=== PATIENT | male | born 1955 | race Caucasian/White ===

== ENCOUNTER → 2021-03-28 10:38 | Outpatient (CLI) | payer OTHER, SELFPAY ==
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
== END ==
PROVIDERS: PCP Emergency Medicine; Visit Provider Emergency Medicine
DX: M47.816 Spondylosis without myelopathy or radiculopathy, lumbar region (principal)
CPT/HCPCS: 72100

== ENCOUNTER 2021-09-12 11:38 | Outpatient (CLI) | payer MEDICARE, MEDICAID, SELFPAY ==
--- NOTE | ~2021-09-12 | XR_ITS ---
EXAMINATION: XR knee LT min 4V DATE: 09/12/2021 12:11 INDICATION: Left knee pain TECHNIQUE: Four views of the left knee were obtained. COMPARISON: None. FINDINGS: Alignment is normal. No fracture or osteochondral lesion. There is mild tricompartmental os teoarthritis characterized by tiny marginal osteophytes. No joint effusion/synovitis. There is mild irregularity of the anterior tibial spine which could reflect prior injury. IMPRESSION: 1. No acute osseous abnormality. Reviewed, dictated and finalized at location F. /R SERVICE TECHNICIAN
--- NOTE | ~2021-09-12 | XR_ITS ---
EXAMINATION: XR knee RT min 4V DATE: 09/12/2021 12:12 INDICATION: Right knee pain TECHNIQUE: Four views of the right knee were obtained. COMPARISON: None. FINDINGS: Alignment is normal. No fracture or osteochondral lesion. There is mild tricompartmental os teoarthritis characterized by tiny marginal osteophytes. No joint effusion/synovitis. There is mild irregularity and heterotopic ossification at the anterior tibial spine, consistent with prior injury. IMPRESSION: 1. No acute osseous abnormality. Reviewed, dictated and finalized at location F. INA REFINERY OPERATOR
== END 2021-09-12 11:39 | disposition home or self-care (01) ==
LOC: ANHIMG 11:46
PROVIDERS: PCP Emergency Medicine; Visit Provider Emergency Medicine
DX: M25.561 Pain in right knee (principal); M25.562 Pain in left knee
CPT/HCPCS: 73564

== ENCOUNTER 2022-04-23 11:43 | Emergency (ER) | payer MEDICARE, MEDICAID, SELFPAY ==
[2022-04-23 11:44] VITALS: BP 119/80; PULSE 87; RESP 18; TEMP 36.2; O2SAT 100
--- NOTE | 2022-04-23 11:57 | ED.NAVMDI ---
HPI - Nausea/Vomiting/Diarrhea General Chief complaint: Nausea/Vomiting/Diarrhea Stated complaint: N/V/D x 4 days Time Seen by Provider: 04/23/22 11:46 History of Present Illness HPI Narrative: 66-year-old male history of diabetes presents to the emergency room for evaluation of diarrhea. Patient states that he has had multiple episodes of nonbloody diarrhea since . Patient states that he is been experiencing just some generalized weakness, body aches and a headache. Patient states that he took hral-[id number] Imodium twice yesterday and that did not relieve his symptoms. Patient was seen at his primary care physician's office this morning, and was told to come to the emergency room for further evaluation. Patient endorses 1 episode of nausea since . Denies any abdominal pain. Related Data Allergies Allergy/AdvReac Type Severity Reaction Status Date / Time codeine Allergy Unknown Jittery Verified 04/23/22 11:55 hydrocodone Allergy Unknown Jittery Verified 04/23/22 11:55 Review of Systems Review of Systems: CONSTITUTIONAL: Denies fever, chills, or sweats. EYES: Denies visual changes, redness, or discharge. ENT: Denies rhinorrhea, congestion, sore throat, or otalgia. CARDIOVASCULAR: Denies chest pain, palpitations, or edema. RESPIRATORY: Denies cough or dyspnea. GASTROINTESTINAL: Reports diarrhea GENITOURINARY: Denies dysuria or hematuria. SKIN: Denies rash or itching. MUSCULOSKELETAL: Denies back pain, joint pain, or myalgia. NEUROLOGIC: Denies headache, numbness, dizziness, or weakness. PSYCHIATRIC: Denies anxiety or depression. Exam Narrative: GENERAL: Well-appearing, well-nourished, no physical limitations, and in no acute distress. HEAD: Normocephalic, atraumatic. EYES: Conjunctivae normal, PERRLA and EOMI. CHEST: Clear to auscultation. No respiratory distress. No wheezes rales or rhonchi. No tenderness. HEART: Regular rate and rhythm. No murmur heard. Normal peripheral pulses. ABDOMEN: Soft, nontender, obese, normal active bowel sounds. EXTREMITIES: Normal range of motion. No edema. No clubbing or cyanosis SKIN: Warm, dry, no rash. No noted wounds NEURO: No focal deficits. Alert and oriented x3. MAEW. CN's II-XI intact bilaterally, normal gait PSYCH: Cooperative. Normal mood and affect. Course Vital Signs Vital signs: Vital Signs Temperature 36.2 C L 04/23/22 11:44 Pulse Rate 87 04/23/22 11:44 Respiratory Rate 18 04/23/22 11:44 Blood Pressure 119/80 04/23/22 11:44 Pulse Oximetry 100 04/23/22 11:44 Oxygen Delivery Room Air 04/23/22 11:44 Temperature 36.2 C L 04/23/22 11:44 Pulse Rate 86 04/23/22 12:01 Respiratory Rate 18 04/23/22 12:01 Blood Pressure 134/80 04/23/22 12:01 Pulse Oximetry 100 04/23/22 12:01 Oxygen Delivery Room Air 04/23/22 11:44 MDM - Nausea/Vomiting/Diarrhea Lab Data Result diagrams: 04/23/22 12:02 04/23/22 12:02 Labs: Lab Results 04/23/22 04/23/22 04/23/22 Range/Units 12:02 12:02 13:46 WBC 8.8 (4.5-10.0) K/mm3 RBC 4.52 L (4.6-6.20) M/mm3 Hgb 13.8 L (14.0-18.0) g/dL Hct 42.4 (42.0-52.0) % MCV 93.8 (80-100) fl MCH 30.5 (26-34) pg MCHC 32.5 (32-36) g/dl RDW 13.0 (11.5-14.5) % Plt Count 234 (150-375) k/mm3 MPV 9.2 (7.4-10.4) fl Immature Gran % (Auto) 0.6 H (0-0.5) % Neut % (Auto) 76.3 H (45.5-73.1) % Lymph % (Auto) 10.3 L (18.3-44.2) % Pratt % (Auto) 9.2 H (2.6-8.5) % Eos % (Auto) 3.0 (0-4.4) % Baso % (Auto) 0.6 (0.2-1.2) % Lymph # (Auto) 0.91 (0.9-3.2) K/mm3 Pratt # (Auto) 0.8 H (0.1-0.6) K/mm3 Eos # (Auto) 0.3 (0-0.3) K/mm3 Baso # (Auto) 0.1 (0.0-0.1) K/mm3 Abs Immat Gran (auto) 0.05 H (0.00-0.031) K/mm3 Absolute Neuts (auto) 6.7 (1.3-6.7) K/mm3 Absolute Nucleated RBC 0.0 (0.0-0.012) K/mm3 Nucleated RBC % 0.0 (0.0-0.2) % Sodium 138 (137-145) mmol/L Potassium 3.9 (
[2022-04-23 12:01] VITALS: BP 134/80; PULSE 86; RESP 18; O2SAT 100
[2022-04-23] MEDS: LACTATED RINGERS 1,000 ML 999 ML IV CONT (12:03)
[2022-04-23 12:10] LABS: Basophils Absolute Auto 0.1 K/mm3 (0.0-0.1); Basophils Percent Auto 0.6 % (0.2-1.2); Eosinophils Absolute Auto 0.3 K/mm3 (0-0.3); Hematocrit 42.4 % (42.0-52.0); Hemoglobin 13.8 g/dL (14.0-18.0); Immature Granulocyte Absolute 0.05 K/mm3 (0.00-0.031); Immature Granulocyte Percent A 0.6 % (0-0.5); Lymphocytes Absolute Auto 0.91 K/mm3 (0.9-3.2); Lymphocytes Percent Auto 10.3 % (18.3-44.2); Mean Corpuscular HGB Conc 32.5 g/dl (32-36); Mean Corpuscular Hemoglobin 30.5 pg (26-34); Mean Corpuscular Volume 93.8 fl (80-100); Mean Platelet Volume 9.2 fl (7.4-10.4); Monocytes Absolute Auto 0.8 K/mm3 (0.1-0.6); Monocytes Percent Auto 9.2 % (2.6-8.5); Neutrophils Absolute Auto 6.7 K/mm3 (1.3-6.7); Neutrophils Percent Auto 76.3 % (45.5-73.1); Platelet Count Result 234 k/mm3 (150-375); Red Blood Count 4.52 M/mm3 (4.6-6.20); White Blood Count 8.8 K/mm3 (4.5-10.0)
[2022-04-23 12:22] LABS: Alanine Aminotransferase 25 U/L (6-50); Albumin Level 4.6 g/dL (3.5-5.1); Alkaline Phosphatase 62 U/L (38-126); Anion Gap 13 mmol/L (8-16); Aspartate Amino Transferase 22 U/L (17-59); Bilirubin,Total 0.7 mg/dL (0.2-1.3); Blood Urea Nitrogen 25 mg/dL (9-20); Calcium 9.1 mg/dL (8.4-10.2); Carbon Dioxide 21 mmol/L (22-30); Chloride 104 mmol/L (98-107); Estimated CRCL calculation 88 ml/min; Estimated Glomerular Filt Rate > 60; Glucose 174 mg/dL (65-110); Lipase 126 U/L (23-300); Potassium 3.9 mmol/L (3.4-5.0); Sodium 138 mmol/L (137-145)
[2022-04-23] MEDS: SODIUM CHLORIDE 0.9% IV 1,000 ML 999 ML IV CONT (13:01)
[2022-04-23 13:06] VITALS: O2SAT 99
[2022-04-23 13:07] VITALS: BP 128/81; O2SAT 98
[2022-04-23 13:15] VITALS: O2SAT 100
[2022-04-23 13:16] VITALS: BP 139/76; O2SAT 100
--- NOTE | 2022-04-23 13:51 | PC.NURSE ---
Patient ambulatory to the bathroom to provide urine sample. States I'm feeling much better after the IV .
[2022-04-23 14:00] LABS: Appearance Urine Clear (Clear); Bilirubin Urine Negative (Negative); Blood Urine Negative (Negative); Color Urine Yellow (Yellow); Glucose Urine UA Negative (Negative); Ketones Urine Negative (Negative); Leukocyte Esterase Ur Negative LEU/UL (Negative); Nitrate Urine Negative (Negative); Protein Urine Negative (Negative); Urobilinogen Urine 0.2 mg/dL (<2.0); pH Urine 5.5 (5.0-9.0)
[2022-04-23 14:11] LABS: Mucus Urine Heavy /lpf; RBC Urine 0-2 /hpf (0-2); Squamous Epithelial Cell Urine Rare /hpf (Few); WBC Urine 0-3 /hpf
[2022-04-23 14:22] LABS: Add Urine Microscopic? YES
== END 2022-04-23 14:28 | disposition home or self-care (01) ==
PROVIDERS: Emergency Medicine; Emergency Provider Nurse Practitioner Family; PCP Emergency Medicine
DX: R19.7 Diarrhea, unspecified (principal); E11.9 Type 2 diabetes mellitus without complications
CPT/HCPCS: 36415; 80053; 81001; 83690; 85025; 96360; 96361; 99283; J7030; J7120

== ENCOUNTER 2023-03-28 11:33 | Outpatient (CLI) | payer MEDICARE, MEDICAID, SELFPAY ==
--- NOTE | ~2023-03-28 | XR_ITS ---
Right foot Technique: AP, oblique, and lateral views were obtained. Clinical History: Pain Findings: No acute fracture or dislocation is seen. There is hallux valgus with mild degenerative halima nge at the first MTP joint. Soft tissues are unremarkable. Impression: Hallux valgus with mild degenerative change of the first MTP joint. Reviewed, dictated and finalized at location . Impression: Hallux valgus with mild degenerative change of the first MTP joint.
== END 2023-03-28 11:34 | disposition home or self-care (01) ==
PROVIDERS: PCP Emergency Medicine
DX: M79.671 Pain in right foot (principal); M79.672 Pain in left foot; E11.610 Type 2 diabetes mellitus with diabetic neuropathic arthropathy; R26.89 Other abnormalities of gait and mobility; M20.11 Hallux valgus (acquired), right foot
CPT/HCPCS: 73630

== ENCOUNTER 2024-10-03 09:25 | Outpatient (CLI) | payer MEDICARE, MEDICAID, SELFPAY ==
--- OUTSIDE RECORDS SUMMARY | 2024-10-03 09:34 | XMS_ITS | Encounter Summary ---
Author Organization [facility] Address [address] [place] [address] Care Team Providers Care Mobile Architect Name Role Phone Joe Sanchez MD Primary Care Provider [phone] Encounter Details Date Type Department Care Team (Late st Contact Info) Description 02/02/2022 Telephone [facility], Diabetes and Metabolism [address] [facility] [place] [phone] Floyd Lind MD [address] [place] [address] Social History Tobacco Use Types Packs/Day Years Used Date Smoking Tobacco: Never Smokeless Tobacco: Never Alcohol Use Standard Drinks/Week Comments Yes 0 (1 standard drink = 0.6 oz pur e alcohol) ocas Sex and Gender Information Value Date Recorded Sex Assigned at Not on file Gender Identity Not on file Sexual Orientation Not on file documented as of this encounter Miscellaneous Notes * Telephone Encounter - Faith Bhagat - 02/02/2022 2:17 PM CDT Current Provider name: Dr. Floyd Lind Reason for call: Mr. Camille Sunshine brought paper work for the doctor to fill out at his appt 01/03/2022 then it was to be faxed over to [facility] in [place], [place] . Fax # is on paper work. He would like it completed so he can get his shoes. He stressed it has now been a month. Thanks. Patient Call Back number: [phone] documented in this encounter Plan of Treatment Upcoming Encounters Date Type Department Care Team (Late st Contact Info) Description 01/11/2025 12:40 PM CDT Office Visit [facility] - Sleep Services [address] [place] [address] Ivett Rodriguez DO [address] [facility] [address] DIV [place] [address] 03/31/2025 1:00 PM CDT Office Visit [facility] - Endocrinology [address] [facility] [place] [phone] Remi Moran MD [address] [facility] DIV [place] [phone] documented as of this encounter Visit Diagnoses Not on filedocumented in this encounter Care Teams Mobile Architect Relationship Specialty Start Date End Date Joe Sanchez MD [address] [facility] [address] [place] [address] PCP - General 02/02/22 documented as of this encounter
--- OUTSIDE RECORDS SUMMARY | 2024-10-03 09:34 | XMS_ITS | Referral Summary ---
Author Organization [facility] Address [address] [facility] [facility] [place] [address] Care Team Providers Care Electric Meter Repairer Apprentice Name Role Phone Joe Sanchez MD Primary Care Provider [phone] Source Comments [facility],non-owned Affiliates and Associated Physician Practices is amultiple site organization consisting of ambulatory clinics and hospital sitesin [place], [place] and [place]. This disclosure is being madepursuant to the Care Everywhere program and may not contain all information available regarding this patient. Last updated 18.[facility] Encounters Date Type Department Care Team Description 09/30/2024 Refill [facility] Endocrinology [address] [place] [phone] Rebekah Harrell MD MEDICATION REFILL 09/28/2024 Refill [facility] Endocrinology [address] [place] [phone] Rebekah Harrell MD Refill Request 09/25/2024 Travel 09/23/2024 Travel 09/23/2024 1:00 PM OPERATOR SUPPLY Office Visit [facility] - Endocrinology [address] [place] [phone] Rebekah Harrell MD Type 2 diabetes mellitus without complication, with long-term current use of insulin (HCC) (Primary Dx); GRISEL (obstructive sleep apnea) 09/08/2024 Refill [facility] Internal Med [address] [place] [phone] Samanta Francisco MD MEDICATION REFILL 07/07/2024 Refill [facility] - Endocrinology [address] [facility] [place] [phone] Aron Rogers MD Refill Request from Last 3 Months Allergies Active Allergy Reactions Criticality Noted Date Comments Codeine Itching Low 10/10/2016 Medications * Be aware that medications may not be up to date on this document. Alwaysverify current medications with the patient. Medication Sig Dispensed Refills Start Date End Date Status aspirin EC (ECOTRIN) 81 MG tablet Take 1 (one) tablet by mouth once daily Active metFORMIN (GLUCOPHAGE) 500 MG tablet Take 1 (one) tablet by mouth 2 times daily 2 Active metoprolol succinate XL 24hr (TOPROL XL) 25 MG tablet Take 1 (one) tablet by mouth once daily Active atorvastatin (LIPITOR) 80 MG tablet Take 1 (one) tablet by mouth once daily Active fenofibrate (TRICOR) 145 MG tablet Take 1 (one) tablet by mouth once daily Active Glucosamine-Cho ndroit-Vit C-Mn (GLUCOSAMINE 1500 COMPLEX PO) Take 1,500 mg by mouth once daily Active VITAMIN D PO Take 1 tablet by mouth every 7 days Active vitamin D, ergocalciferol, (Drisdol) 1.25 MG (04592 UT) capsuleIndicati ons:Vitamin D deficiency Take 1 (one) capsule by mouth every 7 days 8 capsule 3 Active omeprazole EC (PriLOSEC OTC) 20 MG tabletIndicatio ns:Gastroesopha geal reflux disease, unspecified whether esophagitis present Take 1 (one) tablet by mouth once daily 14 tablet 3 Active losartan (Cozaar) 50 MG tablet Take 1 (one) tablet by mouth once daily 100 tablet 4 4 Active sildenafil (Viagra) 100 MG tablet Take 1 (one) tablet by mouth once daily as needed 4 Active omeprazole (PriLOSEC) 20 MG capsule Take 1 (one) capsule by mouth every morning 4 Active Lantus SoloStar pen INJECT 45 UNITS SUBCUTANEOUSLY AT BEDTIME 12 mL 11 4 Active Sure Comfort Pen [place] 32G X 4 MM MISC as directed 4 Active ezetimibe (Zetia) 10 MG tablet Take 1 (one) tablet by mouth once daily 4 025 Active Farxiga 5 MG tabletIndicatio ns:Type 2 diabetes mellitus without complication, with long-term current use of insulin (HCC) TAKE ONE TABLET BY MOUTH EVERY MORNING 30 tablet 5 4 Active Ozempic, 2 MG/DOSE, 8 MG/3ML penIndications: Other sleep apnea,Type 2 diabetes mellitus without complication, with long-term current use of insulin (HCC) Inject 2 (two) mg subcutaneously every 7 days 9 mL 3 5 Active tirzepatide (Mounjaro) 10 MG/0.5ML injectionIndica tions:Type 2 diabetes mellitus without complication, with long-term current use of insulin (HCC) Inject 10 (ten) mg subcutaneously every 7 days 2 mL 2 5 Active Blood Glucose Monitoring Suppl (OneTouch Verio Flex System) w/Device KITIndications: Type 2 diabetes mellitus without complication, with long-term current use of insulin (HCC) USE DIRECTED 1 kit 1 5 Active ONETOUCH DELICA PLUS 30G FINE LANCETSIndicati ons:Type 2 diabetes mellitus without complication, with long-term current use of insulin (HCC) Use 1 Each 3 times daily before meals 100 Each 2 5 Active blood glucose test stripIndication s:Type 2 diabetes mellitus without complication, with long-term current use of insulin (HCC) Use 1 (one) strip as directed 100 strip 2 5 Active Ozempic, 2 MG/DOSE, 8 MG/3ML pen 2 (two) mg every 7 days 4 025 Discontinued(Re order) Blood Glucose Monitoring Suppl (Blood Glucose Monitor System) w/Device KITIndications: Type 2 diabetes mellitus without complication, with long-term current use of insulin (HCC) Use 1 Each once for 1 dose 1 Each 5 025 Discontinued Blood Pressure Monitoring (Blood Pressure Cuff) MISCIndications :Type 2 diabetes mellitus without complication, with long-term current use of insulin (HCC) Use 1 Each 1 (one) time for 1 dose 1 Each 025 Active Problems Problem Noted Date Diagnosed Date Back pain 10/24/2021 Sleep talking 10/24/2021 Sleep related bruxism 10/24/2021 Sleep related gastroesophageal reflux disease Nocturia 10/24/2021 Hypertension, secondary 10/24/2021 Hypersomnia due to medical condition 10/24/2021 RBBB 10/19/2021 DM type 2 (diabetes mellitus, type 2) 09/27/2021 Other sleep apnea 09/27/2021 Class 2 obesity in adult 09/27/2021 Other hyperlipidemia 09/27/2021 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 09/27/2021 Primary hypertension 09/27/2021 Immunizations Name Administration Dates Next Due INFLUENZA VACCINE 08/31/2021 PNEUMOCOCCAL PPSV23 08/31/2021 Social History Tobacco Use Types Packs/Day Years Used Date Smoking Tobacco: Never Smokeless Tobacco: Never Tobacco Cessation:Counseling Given: Not Answered Alcohol Use Standard Drinks/Week Comments Yes 0 (1 standard drink = 0.6 oz pur e alcohol) ocas PHQ-2 Answer Date Recorded Patient Health Questionnaire-2 Score 0 05/08/2023 Sex and Gender Information Value Date Recorded Sex Assigned at Not on file Gender Identity Not on file Sexual Orientation Not on file Last Filed Vital Signs Vital Sign Reading Time Taken Comments Blood Pressure 143/84 09/23/2024 1:12 PM OPERATOR SUPPLY Pulse 92 09/23/2024 1:12 PM OPERATOR SUPPLY Temperature 36.7 C (98 F) 01/23/2023 2:34 PM CDT Respiratory Rate 18 01/23/2023 2:34 PM CDT Oxygen Saturation 93% 09/23/2024 1:12 PM OPERATOR SUPPLY Inhaled Oxygen Concentration - - Weight 118 kg (260 lb 3.2 oz) 09/23/2024 1:12 PM OPERATOR SUPPLY Height 190.5 cm (6' 3 ) 09/23/2024 1:12 PM OPERATOR SUPPLY Body Mass Index 32.52 09/23/2024 1:12 PM OPERATOR SUPPLY Plan of Treatment Upcoming Encounters Date Type Department Care Team (Late st Contact Info) Description 01/11/2025 12:40 PM CDT Office Visit [facility] - Sleep Services [address] [place] [phone] Ivett Rodriguez DO [address] [facility] [address] [place] [address] 03/31/2025 1:00 PM CDT Office Visit [facility] - Endocrinology [address] [place] [address], [place] [address] Remi Moran MD [address] [facility] [place] [phone] Procedures Procedure Name Priority Date/Time Associated Diagnosis Comments HEMOGLOBIN A1C - POINT OF CARE (AMB) [facility] Routine 09/23/2024 1:32 PM OPERATOR SUPPLY Type 2 diabetes mellitus without complication, with long-term current use of insulin (HCC) MICROALB/CREAT RATIO URINE RANDOM PANEL Routine 04/15/2024 11:21 AM CDT COMPREHENSIVE METABOLIC PANEL Routine 01/29/2023 7:38 AM CDT Type 2 diabetes mellitus without complication, with long-term current use of insulin (HCC) from Last 3 Months or Most Recently Relevant to Health Maintenance Results * HEMOGLOBIN A1C - POINT OF CARE (AMB) [facility] (09/23/2024 1:32 PM OPERATOR SUPPLY) Hemoglobin A1c POCT 6.7 % [address] BLOOD SPECIMEN / Unknown 09/23/2024 1:32 PM OPERATOR SUPPLY Samanta Francisco MD LAB - POINT OF CARE ORDERABLES [address] [address], [facility] [phone] * MICROALB/CREAT RATIO URINE RANDOM PANEL (04/15/2024 11:21 AM CDT) Creatinine Urine 184.7 Not Estab. mg/dL [facility] INSURANCE BILL Microalbumin Urine 5.2 Not Estab. ug/mL [facility] INSURANCE BILL Microalbumin/Crea tinine Ratio 3 0 - 29 mg/g creat [facility] INSURANCE BILL Comment: Normal: 0 - 29 Moderately increased: 30 - 300 Severely increased: >300 04/15/2024 11:2 1 AM CDT 04/15/2024 Narrative [facility] INSURANCE BILL - 04/16/2024 7:12 AM CDT Performed at: 01 - [facility] [address] [place], [place] [id number] Senior Analyst Developer: Paulie Luong PhD, Phone: [phone] Specimen Comment: A courtesy copy of this report has been sent to [phone], the patient Aron Rogers MD LAB - URINE CHEMISTR Y ORDERABLES [facility] INSURANCE BILL [address] [place] [address] * (ABNORMAL) COMPREHENSIVE METABOLIC PANEL (01/29/2023 7:38 AM CDT) Glucose 109(H) 70 - 99 mg/dL [facility] INSURANCE BILL BUN 27 8 - 27 mg/dL [facility] INSURANCE BILL Creatinine 1.12 0.76 - 1.27 mg/dL [facility] INSURANCE BILL eGFR by CKD-EPI 72 >59 mL/min/1.7 3 [facility] INSURANCE BILL BUN/Creatinine Ratio 24 10 - 24 [facility] INSURANCE BILL Sodium 140 134 - 144 mmol/L [facility] INSURANCE BILL Potassium 4.5 3.5 - 5.2 mmol/L [facility] INSURANCE BILL Chloride 102 96 - 106 mmol/L [facility] INSURANCE BILL CO2 22 20 - 29 mmol/L [facility] INSURANCE BILL Calcium 9.0 8.6 - 10.2 mg/dL [facility] INSURANCE BILL Protein Total 6.6 6.0 - 8.5 g/dL [facility] INSURANCE BILL Albumin 4.5 3.9 - 4.9 g/dL [facility] INSURANCE BILL Comment:Please note refere nce interval change Globulin Total 2.1 1.5 - 4.5 g/dL [facility] INSURANCE BILL Albumin/Globulin Ratio 2.1 1.2 - 2.2 [facility] INSURANCE BILL Bilirubin Total 0.5 0.0 - 1.2 mg/dL [facility] INSURANCE BILL Alkaline Phosphatase 61 44 - 121 IU/L [facility] INSURANCE BILL AST 18 0 - 40 IU/L [facility] INSURANCE BILL ALT 18 0 - 44 IU/L [facility] INSURANCE BILL Comment:FASTING Blood BLOOD SPECIMEN / Unknown 01/29/2023 7:38 AM CDT 01/29/2023 Narrative Resulting Agency Comment Lab Testing performed at: [facility] [address] [facility] [id number] Shar Park MD LAB - CHEMISTRY MEG GARCIAS [facility] INSURANCE BILL [address] [place] [address] from Last 3 Months or Most Recently Relevant to Health Maintenance Care Teams Electric Meter Repairer Apprentice Relationship Specialty Start Date End Date Joe Sanchez MD [address] [facility] [address] [place] [address] PCP - General 02/02/22
--- OUTSIDE RECORDS SUMMARY | 2024-10-03 09:34 | XMS_ITS | Clinical Summary ---
Author Organization [facility] Address [address] [facility] [place] [address] Care Team Providers Care Product Management Intern Name Role Phone Joe Sanchez MD Primary Care Provider [phone] Source Comments [facility],non-owned Affiliates and Associated Physician Practices is amultiple site organization consisting of ambulatory clinics and hospital sitesin [place], [place], [place] and [place]. This disclosure is being madepursuant to the Care Everywhere program and may not contain all information available regarding this patient. Last updated 18.[facility] Allergies Active Allergy Reactions Criticality Noted Date [...] Active vitamin D, ergocalciferol, (Drisdol) 1.25 MG (09369 UT) capsuleIndicati ons:Vitamin D deficiency Take 1 [...] mL 11 4 Active Sure Comfort Pen [place] 32G X 4 MM MISC as directed [...] 2 5 Active Blood Glucose Monitoring Suppl (Holidu Verio Flex System) w/Device KITIndications: Type 2 [...] (one) time for 1 dose 1 Each 5 025 Active Problems Problem Noted Date Diagnosed Date Back pain 10/24/2021 Sleep talking 10/24/2021 Sleep related bruxism 10/24/2021 Sleep related gastroesophageal reflux disease Nocturia 10/24/2021 Hypertension, secondary 10/24/2021 Hypersomnia due to medical condition 10/24/2021 RBBB 10/19/2021 DM type 2 (diabetes mellitus, type 2) 09/27/2021 Other sleep apnea 09/27/2021 Class 2 obesity in adult 09/27/2021 Other hyperlipidemia 09/27/2021 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 09/27/2021 Primary hypertension 09/27/2021 Encounters Date Type Department Care Team Description 09/30/2024 Refill [facility] - Endocrinology [address] [place] [address], [place] [address] Rebekah Harrell MD MEDICATION REFILL 09/28/2024 Refill [facility] - Endocrinology [address] [place] [address], [place] [address] Rebekah Harrell MD Refill Request 09/25/2024 Travel 09/23/2024 1:00 PM PEDIATRIC NURSE Office Visit [facility] - Endocrinology [address] [place] [address] [place] [address] Rebekah Harrell MD Type 2 diabetes mellitus without complication, with long-term current use of insulin (HCC) (Primary Dx); GRISEL (obstructive sleep apnea) 09/23/2024 Travel 09/08/2024 Refill [facility] - Internal Med [address] [place] [phone] Samanta Francisco MD MEDICATION REFILL 07/07/2024 Refill [facility] - Endocrinology [address] [place] [address], [place] [address] Aron Rogers MD Refill Request from Last 3 Months Immunizations Name Administration Dates Next Due INFLUENZA VACCINE 08/31/2021 PNEUMOCOCCAL PPSV23 08/31/2021 Family History Medical History Relation Name Comments CAD (Coronary Artery Disease) Father CAD (Coronary Artery Disease) Mother Relation Name Status Comments Father Mother Social History Tobacco Use Types Packs/Day Years [...] Comments Blood Pressure 143/84 09/23/2024 1:12 PM PEDIATRIC NURSE Pulse 92 09/23/2024 1:12 PM PEDIATRIC NURSE Temperature 36.7 C (98 F) 01/23/2023 2:34 PM CDT Respiratory Rate 18 01/23/2023 2:34 PM CDT Oxygen Saturation 93% 09/23/2024 1:12 PM PEDIATRIC NURSE Inhaled Oxygen Concentration - - Weight 118 kg (260 lb 3.2 oz) 09/23/2024 1:12 PM PEDIATRIC NURSE Height 190.5 cm (6' 3 ) 09/23/2024 1:12 PM PEDIATRIC NURSE Body Mass Index 32.52 09/23/2024 1:12 PM PEDIATRIC NURSE Plan of Treatment Upcoming Encounters Date Type Department Care Team (Late st Contact Info) Description 01/11/2025 12:40 PM CDT Office Visit [facility] - [facility] Services [address] [place] [phone] Ivett Rodriguez DO [address] [facility] [address] [facility] [place] [address] 03/31/2025 1:00 PM CDT Office Visit [facility] - Endocrinology [address] [facility] [place] [address] Remi Moran MD [address] [facility] [place] [place] [phone] Health Maintenance Due Date Last Done Comments COLOGUARD (AGES 45-75) - COLON CA SCREENING 1955 COLON MONITORING 1955 COLONOSCOPY - COLON CA SCREENING 1955 CT COLONOGRAPHY - COLON CA SCREENING 1955 Colorectal Cancer Screening 1955 FIT - COLON CA SCREENING 1955 FLEX SIG - COLON CA SCREENING 1955 HEPATITIS C SCREENING 12/25/1973 DTAP/TDAP/TD VACCINES (1 - Tdap) 12/29/1974 ZOSTER VACCINE (1 of 2) 12/29/2005 Respiratory Syncytial Virus (RSV) Vaccine Pt: or over 60 yrs (1 - Risk 60-74 years 1-dose series) 2015 DIABETES RETINOPATHY SCREENING 09/27/2021 PNEUMOCOCCAL VACCINE 50+ (2 of 2 - PCV) 08/31/2022 08/31/2021 DIABETES-FOOT EXAM WITH MONOFILAMENT 10/25/2023 10/24/2022 DIABETES-SERUM CREATININE 01/30/2024 01/29/2023 COVID-19 VACCINE (1 - season) 2024 INFLUENZA VACCINE (#1) 2024 08/31/2021 DEPRESSION SCREENING 07/22/2024 10/24/2022 DIABETES - URINE PROTEIN SCREENING 07/22/2024 04/15/2024 MEDICARE AWV CALENDAR YEAR 2024 DIABETES-HGB A1C 03/26/2025 09/23/2024, , 01/23/2023, Additional history exists HEPATITIS B VACCINE Aged Out No longe r eligible based on patient's age to complete this topic HIB VACCINE Aged Out No longer eligi ble based on patient's age to complete this topic HPV VACCINE Aged Out No longer eligi ble based on patient's age to complete this topic MENINGOCOCCAL (Group B) VACCINE SHARED DECISION-MAKING Aged Out No longer eligible based on patient's age to complete this topic MENINGOCOCCAL GROUPS A/C/Y/W VACCINE Aged Out No longer eligible based on patient's age to complete this topic Procedures Procedure Name Priority Date/Time Associated Diagnosis Comments HEMOGLOBIN A1C - POINT OF CARE (AMB) [facility] Routine 09/23/2024 1:32 PM PEDIATRIC NURSE Type 2 diabetes mellitus without complication, with [...] OF CARE (AMB) [facility] (09/23/2024 1:32 PM PEDIATRIC NURSE) Hemoglobin A1c POCT 6.7 % [address] BLOOD SPECIMEN / Unknown 09/23/2024 1:32 PM PEDIATRIC NURSE Samanta Francisco MD LAB - POINT OF CARE ORDERABLES Performing Organization Address [facility]/State/ZIP Co de Phone Number [address], [place] [address], [facility] [phone] * MICROALB/CREAT RATIO URINE RANDOM PANEL (04/15/2024 [...] 7:12 AM CDT Performed at: 01 - [facility] [address] [place], [place] [id number] Clinical Rehabilitation Aide: Paulie Luong PhD, Phone: [phone] Specimen Comment: A courtesy copy of this report has been sent to [phone], the patient Aron Rogers MD LAB - URINE CHEMISTR Y ORDERABLES [facility] INSURANCE BILL [address] [place] [address] * (ABNORMAL) COMPREHENSIVE METABOLIC PANEL (01/29/2023 7:38 AM CDT) Pathologist [facility] Glucose 109(H) 70 - 99 mg/dL [facility] [...] Agency Comment Lab Testing performed at: [facility] [place] [address] [facility] [id number] Shar Park MD LAB - CHEMISTRY MEG GARCIAS [facility] INSURANCE BILL [address] [place] [address] from Last 3 Months or Most Recently Relevant to Health Maintenance Care Teams Product Management Intern Relationship Specialty Start Date End Date Joe Sanchez MD [address] [facility] [address] [place] [address] PCP - General 02/02/22
--- OUTSIDE RECORDS SUMMARY | 2024-10-03 09:34 | XMS_ITS | CONTINUITY OF CARE DOCUMENT ---
Author Name luissaran luissaran Address Unknown Organization [facility] Address [address] [place] [address] [address] [place] [address] Phone [phone] Care Team Providers Care Refractory Tile Helper Name Role Phone Hasmukh Hodges DO [place] Unavailable [phone] JAMES REDMOND MD Unavailable [phone] JAMES REDMOND MD Unavailable [phone] INSURANCE PROVIDERS Payer name Policy type / Coverage type [place] red green party ID [facility] [employer] insurance company [id number]
--- OUTSIDE RECORDS SUMMARY | 2024-10-03 09:34 | XMS_ITS | Clinical Summary ---
Author Organization [facility] Address [address] [place] [address] Care Team Providers Care Machine Sander Name Role Phone Nicolasa Whitfield MD Unavailable [phone] Joe Sanchez MD Primary Care Provider [phone] Allergies Active Allergy Reactions Criticality Noted Date Comments Codeine Itching 10/10/2016 Medications metFORMIN 850 MG tablet Take 1 tablet (850 mg total) by mouth 2 (two) times daily with meals. 10/10/2016 Active glimepiride 1 MG tablet Take 1 tablet (1 mg total) by mouth every morning before breakfast. 10/10/2016 Active aspirin 81 MG chewable tablet Chew 1 tablet (81 mg total) by mouth daily. 10/10/2016 Active Fish Oil 1000 MG Cap Take 1,000 mg by mouth daily. 05/22/2017 Active fenofibrate 145 MG tablet Take 1 tablet (145 mg total) by mouth nightly at bedtime. 90 tablet 3 08/29/2018 Active losartan 25 MG tablet Take 1 tablet (25 mg total) by mouth every evening. 90 tablet 3 08/29/2018 Active metoprolol succinate 25 MG 24 hr tablet Take 1 tablet (25 mg total) by mouth daily. 90 tablet 3 08/29/2018 Active sildenafil 50 MG tablet Take 1 tablet (50 mg total) by mouth daily as needed for Erectile Dysfunction. 18 tablet 1 08/29/2018 Active Omeprazole 20 MG Tab EC Take 1 tablet by mouth daily. 08/29/2018 Active ATORVASTATIN 80 MG tablet TAKE 1 TABLET BY MOUTH AT BEDTIME EVERY DAY 15 tablet 08/25/2019 Active Active Problems Problem Noted Date Diagnosed Date Hyperlipidemia, mixed 10/10/2016 Type 2 diabetes mellitus ([facility]/HCC HHS/HCC) 03/22 /2017 Obesity 10/10/2016 CAD (coronary artery disease) RBBB Resolved Problems Problem Noted Date Diagnosed Date Resolved Date Chest pain 10/10/2016 Dyslipidemia 10/10/2016 Family History Medical History Relation Comments Diabetes Father PR Mother Open Heart Mother Relation Status Comments Father Mother (Age 65) Social History Tobacco Use Types Packs/Day Years Used Date Smoking Tobacco: Former Cigarettes Q uit: 09/2015 Smokeless Tobacco: Never Comments:Quit smoking 2 week s ago Alcohol Use Standard Drinks/Week Comments Yes 0 (1 standard drink = 0.6 oz pur e alcohol) once a week beer Sex and Gender Information Value Date Recorded Sex Assigned at Not on file Legal Sex Male 2:46 PM CDT Gender Identity Not on file Sexual Orientation Not on file 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 Not on file Not on file No t on file Not on file Not on file Not on file Not on file Last Filed Vital Signs Vital Sign Reading Time Taken Comments Blood Pressure 120/80 08/29/2018 11:11 AM AGRICULTURAL EXTENSION EDUCATOR re taken by Pulse 85 08/29/2018 9:36 AM AGRICULTURAL EXTENSION EDUCATOR Temperature - - Respiratory Rate - - Oxygen Saturation 97% 08/29/2018 9:36 AM AGRICULTURAL EXTENSION EDUCATOR Inhaled Oxygen Concentration - - Weight 122.9 kg (271 lb) 08/29/2018 9:36 AM AGRICULTURAL EXTENSION EDUCATOR Height 190.5 cm (6' 3 ) 08/29/2018 9:36 AM AGRICULTURAL EXTENSION EDUCATOR Body Mass Index 33.87 08/29/2018 9:36 AM AGRICULTURAL EXTENSION EDUCATOR Plan of Treatment Health Maintenance Due Date Last Done Comments ASCVD Statin 1955 Colorectal Cancer Screening Colonoscopy (10 Years) 1955 Kidney Health Evaluation 1955 Pneumococcal Vaccine: 65+ Years (1 of 2 - PCV) 12/29/1961 Diabetes: Retinopathy Eye Exam 12/29/1973 Hepatitis C 12/29/1973 DTaP, Tdap and Td Vaccines (1 - Tdap) 12/29/1974 Zoster Vaccines (1 of 2) 12/29/2005 RSV Immunization or 60+ Years (1 - Risk 60-74 years 1-dose series) 2015 ASCVD LDL 11/27/2018 11/27/2017, 01/19, 09/17/2016 Lipid Panel 11/27/2018 11/27/2017, 01/19, 09/17/2016 Hemoglobin A1C 05/07/2019 11/05/2018, 05/0 03/2018, 02/01/2017, Additional history exists COVID-19 Vaccine ( season) 2024 Influenza Adult (#1) 2024 Meningococcal B Vaccine Aged Out No l onger eligible based on patient's age to complete this topic Meningococcal Vaccine Aged Out No maria isabel zulay eligible based on patient's age to complete this topic RSV Immunizations Under 20 Months Aged Out No longer eligible based on patient's age to complete this topic Procedures Procedure Name Priority Date/Time Associated Diagnosis Comments HEMOGLOBIN, GLYCOSYLATED Routine 11/05/2018 9:38 AM CDT 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 LIPID PANEL Routine 11/27/2017 from Last 3 Months or Most Recently Relevant to Health Maintenance Results * (ABNORMAL) HEMOGLOBIN, GLYCOSYLATED (11/05/2018 9:38 AM CDT) HGB A1C 9.5(H) 4.2 - 6.3 % 11/05/2018 11:11 AM CDT [facility] Comment: ADA GUIDELINES 2010 5.7 TO 6.4% INCREASED RISK OF DIABETES > OR = 6.5% CONSISTENT WITH DIABETES ESTIMATED AVG GLUCOSE 226 mg/dL 11/05/2018 11:11 AM CDT [facility] 11/05/2018 9:38 AM CDT us Oral Chakraborty MD LABORATORY Final Result [facility] [address] [place] [address], [place] [phone] * LIPID PANEL (11/27/2017) CHOLESTEROL 181 HDL 34 TRIGLYCERIDES 192 LDL (CALCULATED) 105 11/27/2017 us Doc [facility]ORAT[facility] Final Result from Last 3 Months or Most Recently Relevant to Health Maintenance Insurance Member Subscriber Plan / Payer (Ef fective 2017-Present) Name:Agueda Herrera Relation to Subscriber:Self Name:Agueda Herrera Payer ID:[id number] (NAIC) Type:Not on file Address: [address] Member Subscriber Plan / Payer (Ef fective 2018-Present) Name:AGUEDA HERRERA Relation to Subscriber:Self Name:Agueda Herrera Payer ID:[id number] (NAIC) Type:Not on file Address: [place] [id number] Care Teams Machine Sander Relationship Specialty Start Date End Date Joe Sanchez MD [address] [place] [address] PCP - General 03/05/17 Nicolasa Whitfield MD [facility] [address] [place] [address] [place] Clinical Medical Assistant CARDIOVASCULAR DISEASE 10/02/16
--- OUTSIDE RECORDS SUMMARY | 2024-10-03 09:34 | XMS_ITS | Encounter Summary ---
Author Organization [facility] Address [facility] [place] [address] Care Team Providers Care Stitcher Utility Name Role Phone Joe Sanchez MD Primary Care Provider [phone] Nicolasa Whitfield MD Unavailable [phone] Shyam Bustillo MD Unavailable Md Generic Conversion Primary Care Provider Unavailable Md Generic Conversion Primary Care Provider Unavailable Md Generic Conversion Primary Care Provider Unavailable Joe Sanchez MD Primary Care Provider Encounter Details Date Type Department Care Team (Late st Contact Info) Description 10/11/2016 Abstract [facility] AT [address] [address] Carin Burgos MA Social History Tobacco Use Types Packs/Day Years [...] 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 on file Not on file No t on file documented as of this encounter Plan of Treatment Not on file documented as of this encounter Procedures Procedure Name Priority Date/Time Associated Diagnosis Comments CBC (OUTSIDE LAB) Routine 11/27/2017 COMPREHENSIVE METABOLIC PANEL Routine 11/27/2017 LIPID PANEL Routine 11/27/2017 HEMOGLOBIN, GLYCOSYLATED Routine 11/27/2017 THYROXINE, FREE (FT4) Routine 11/27/2017 THYROID STIM HORMONE TSH Routine 11/27/2017 CK (CPK) Routine 11/27/2017 URIC ACID BLOOD Routine 11/27/2017 ESR (OUTSIDE LAB) Routine 09/17/2016 CBC (OUTSIDE LAB) Routine 09/17/2016 RHEUMATOID FACTOR, QUANT Routine 09/17/2016 PROSTATE SPECIFIC ANTIGEN,TOTAL Routine 09/17/2016 COMPREHENSIVE METABOLIC PANEL Routine 09/17/2016 LIPID PANEL Routine 09/17/2016 HEMOGLOBIN, GLYCOSYLATED Routine 09/17/2016 THYROXINE, FREE (FT4) Routine 09/17/2016 THYROID STIM HORMONE TSH Routine 09/17/2016 documented in this encounter Results * CK (CPK) (11/27/2017) CPK 144 11/27/2017 us Doc [facility] Final Result * LIPID PANEL (11/27/2017) Pathologist [facility] CHOLESTEROL 181 HDL 34 TRIGLYCERIDES 192 LDL (CALCULATED) 105 11/27/2017 us Doc [facility] Final Result * THYROXINE, FREE (FT4) (11/27/2017) FREE T4 1.26 11/27/2017 us Doc [facility] Final Result * CBC (OUTSIDE LAB) (11/27/2017) WBC 6.5 HGB 13.6 HCT 42.4 PLT 236 11/27/2017 us Doc [facility] LAB-OUTSIDE/ABSTRACTED Final Result * HEMOGLOBIN, GLYCOSYLATED (11/27/2017) HGB A1C 7.5 11/27/2017 us Doc [facility] Final Result * COMPREHENSIVE METABOLIC PANEL (11/27/2017) SODIUM S/P/B 143 POTASSIUM S/P/B 4.7 CO2 27 CHLORIDE S/P/B 101 GLUCOSE 145 mg/dL CALCIUM S/P/B 9.8 BUN 23 CREATININE S/P/B 1.09 0.7 - 1.3 EGFR NON-AFR. AMER. 73 <=90 ALKALINE PHOSPHATASE S/P/B 64 ALT 30 AST 27 BILIRUBIN TOTAL S/P/B 0.4 ALBUMIN S/P/B 4.6 3.5 - 5.0 TOTAL PROTEIN S/P/B 6.9 11/27/2017 us Doc [facility] Edited Resul t - Final * URIC ACID BLOOD (11/27/2017) URIC ACID 4.5 11/27/2017 us Doc [facility] Final Result * THYROID STIM HORMONE, TSH (11/27/2017) TSH 2.73 11/27/2017 us Doc [facility] Final Result * RHEUMTOID FACTOR, QUANT (09/17/2016) RHEUMATOID FACTOR (QN) <10 <14 09/17/2016 us Doc [facility] Final Result * ESR (OUTSIDE LAB) (09/17/2016) SED RATE 12 0 - 20 mm/hr 09/17/2016 us Doc [facility]-OUTSIDE/ABSTRACTED Final Result * HEMOGLOBIN, GLYCOSYLATED (09/17/2016) HGB A1C 8.0 09/17/2016 us Doc [facility] Final Result * THYROXINE, FREE (FT4) (09/17/2016) FREE T4 1.16 09/17/2016 us Doc [facility] Final Result * THYROID STIM HORMONE, TSH (09/17/2016) TSH 2.210 09/17/2016 us Doc [facility] Final Result * PROSTATE SPECIFIC ANTIGEN,TOTAL (09/17/2016) PSA 1.59 09/17/2016 us Doc [facility] Edited Resul t - Final * CBC (OUTSIDE LAB) (09/17/2016) WBC 6.19 HGB 13.8 HCT 43.2 PLT 243 09/17/2016 us Doc [facility] LAB-OUTSIDE/ABSTRACTED Final Result * LIPID PANEL (09/17/2016) CHOLESTEROL 157 HDL 26 TRIGLYCERIDES 179 LDL (CALCULATED) 95 09/17/2016 us Doc [facility] Final Result * COMPREHENSIVE METABOLIC PANEL (09/17/2016) SODIUM S/P/B 144 POTASSIUM S/P/B 4.8 CO2 23 CHLORIDE S/P/B 103 GLUCOSE 164 CALCIUM S/P/B 9.5 BUN 12 CREATININE S/P/B 0.87 0.7 - 1.3 EGFR NON-AFR. AMER. 114 ALKALINE PHOSPHATASE S/P/B 87 ALT 43 AST 32 BILIRUBIN TOTAL S/P/B 0.5 ALBUMIN S/P/B 4.5 3.5 - 5.0 TOTAL PROTEIN S/P/B 6.8 09/17/2016 us Doc [facility] Final Result documented in this encounter Visit Diagnoses Not on filedocumented in this encounter Care Teams Stitcher Utility Relationship Specialty Start Date End Date Joe Sanchez MD [address] [address] PCP - General FAMILY PRACTICE 12/21/15 11/13/16 Md Generic Conversion, PCP - General 02/01/17 03/04/17 Md Generic Conversion, PCP - General 01/08/17 01/31/17 Md Generic Conversion, PCP - General 11/14/16 01/07/17 Joe Sanchez MD [address] [address] PCP - General 03/05/17 Nicolasa Whitfield MD [facility] [address] [place] [address] Oscar Supervisor Garage CARDIOVASCULAR DISEASE 10/02/16 Shyam Bustillo MD [address] [place] [address] EP Supervisor Garage CARDIOVASCULAR DISEASE 10/11/16 documented as of this encounter
--- OUTSIDE RECORDS SUMMARY | 2024-10-03 09:34 | XMS_ITS | Patient Health Summary ---
Author Organization [facility] Address [address] [place] [address] Care Team Providers Care Professor/Nurse Anesthetist Name Role Phone Joe Sanchez MD Primary Care Provider [phone] Note from [facility],non-owned Affiliates and Associated Physician Practices is amultiple site organization consisting of ambulatory clinics and hospital sitesin [place], [place], [place] and [place]. This disclosure is being madepursuant to the Care Everywhere program and may not contain all information available regarding this patient. Last updated 18.[facility] Allergies * Codeine(Itching) -Low Criticality Medications * Be aware that medications may not be up to date on this document. Alwaysverify current medications with the patient. * aspirin EC (ECOTRIN) 81 MG tablet Take 1 (one) tablet by mouth once daily * metFORMIN (GLUCOPHAGE) 500 MG tablet(Started 09/25/2021) Take 1 (one) tablet by mouth 2 times daily * metoprolol succinate XL 24hr (TOPROL XL) 25 MG tablet Take 1 (one) tablet by mouth once daily * atorvastatin (LIPITOR) 80 MG tablet Take 1 (one) tablet by mouth once daily * fenofibrate (TRICOR) 145 MG tablet Take 1 (one) tablet by mouth once daily * Lhchtghgedd-Vwmgyyhxn-Lid C-Mn (GLUCOSAMINE 1500 COMPLEX PO) Take 1,500 mg by mouth once daily * VITAMIN D PO Take 1 tablet by mouth every 7 days * vitamin D, ergocalciferol, (Drisdol) 1.25 MG (18198 UT) capsule(Started 03/20/2023) Take 1 (one) capsule by mouth every 7 days * omeprazole EC (PriLOSEC OTC) 20 MG tablet(Started 05/08/2023) Take 1 (one) tablet by mouth once daily * losartan (Cozaar) 50 MG tablet(Started 11/04/2023) Take 1 (one) tablet by mouth once daily 4 refills by 11/03/2024 * sildenafil (Viagra) 100 MG tablet(Started 10/30/2023) Take 1 (one) tablet by mouth once daily as needed * omeprazole (PriLOSEC) 20 MG capsule(Started 10/31/2023) Take 1 (one) capsule by mouth every morning * Lantus SoloStar pen(Started 01/29/2024) INJECT 45 UNITS SUBCUTANEOUSLY AT BEDTIME 11 refills by 01/28/2025 * Sure Comfort Pen [place] 32G X 4 MM MISC(Started 05/11/2024) as directed * ezetimibe (Zetia) 10 MG tablet(Started 04/03/2024) Take 1 (one) tablet by mouth once daily * Farxiga 5 MG tablet(Started 07/08/2024) TAKE ONE TABLET BY MOUTH EVERY MORNING 5 refills by 07/08/2025 * Ozempic, 2 MG/DOSE, 8 MG/3ML pen(Started 09/08/2024) Inject 2 (two) mg subcutaneously every 7 days 3 refills by 09/08/2025 * tirzepatide (Mounjaro) 10 MG/0.5ML injection(Started 09/23/2024) Inject 10 (ten) mg subcutaneously every 7 days 2 refills by 09/23/2025 * Blood Glucose Monitoring Suppl ([employer] Verio Flex System) w/Device KIT (Started 09/28/2024) USE DIRECTED 1 refill by 09/28/2025 * ONETOUCH DELICA PLUS 30G FINE LANCETS(Started 09/30/2024) Use 1 Each 3 times daily before meals 2 refills by 09/30/2025 * blood glucose test strip(Started 09/30/2024) Use 1 (one) strip as directed 2 refills by 09/30/2025 Ended Medications* Ozempic, 2 MG/DOSE, 8 MG/3ML pen(Started 10/30/2023) (Discontinued) 2 (two) mg every 7 days * Blood Glucose Monitoring Suppl (Blood Glucose Monitor System) w/Device KIT (Started 09/23/2024)(Discontinued) Use 1 Each once for 1 dose * Blood Pressure Monitoring (Blood Pressure Cuff) MISC(Started 09/23/2024) () Use 1 Each 1 (one) time for 1 dose Active Problems Problem Noted Date Diagnosed Date Back pain 10/24/2021 Sleep talking 10/24/2021 Sleep related bruxism 10/24/2021 Sleep related gastroesophageal reflux disease Nocturia 10/24/2021 Hypertension, secondary 10/24/2021 Hypersomnia due to medical condition 10/24/2021 RBBB 10/19/2021 DM type 2 (diabetes mellitus, type 2) 09/27/2021 Other sleep apnea 09/27/2021 Class 2 obesity in adult 09/27/2021 Other hyperlipidemia 09/27/2021 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 09/27/2021 Primary hypertension 09/27/2021 Immunizations * INFLUENZA VACCINE(Given 08/31/2021) * PNEUMOCOCCAL PPSV23(Given 08/31/2021) Social History Tobacco Use Types Packs/Day Years [...] Comments Blood Pressure 143/84 09/23/2024 1:12 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 Pulse 92 09/23/2024 1:12 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 SERVER Temperature 36.7 C (98 F) 01/23/2023 2:34 PM CDT Respiratory Rate 18 01/23/2023 2:34 PM CDT Oxygen Saturation 93% 09/23/2024 1:12 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 SERVER Inhaled Oxygen Concentration - - Weight 118 kg (260 lb 3.2 oz) 09/23/2024 1:12 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 SERVER Height 190.5 cm (6' 3 ) 09/23/2024 1:12 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 SERVER Body Mass Index 32.52 09/23/2024 1:12 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 SERVER Procedures * HEMOGLOBIN A1C - POINT OF CARE (AMB) [facility](Performed 09/23/2024) Performed for Type 2 diabetes mellitus without complication, with long-term current use of insulin ([facility]) * HEMOGLOBIN A1C(Performed 04/15/2024) * MICROALB/CREAT RATIO URINE RANDOM PANEL(Performed 04/15/2024) * LAB RESULTS ORDER(Performed 04/15/2024) * LAB RESULTS ORDER(Performed 07/17/2023) * PROLACTIN(Performed 04/09/2023) * FSH(Performed 04/09/2023) * LH(Performed 04/09/2023) * TSH(Performed 04/09/2023) * T4 FREE(Performed 04/09/2023) * TESTOSTERONE FREE+TOTAL EQUIL LC/MS(Performed 04/09/2023) Performed for Male hypogonadism * VITAMIN B12(Performed 01/29/2023) * VITAMIN D 25-HYDROXY(Performed 01/29/2023) * PROSTATE SPECIFIC ANTIGEN SCREEN(Performed 01/29/2023) * LIPID PROFILE(Performed 01/29/2023) * CBC W AUTO DIFFERENTIAL(Performed 01/29/2023) * TESTOSTERONE FREE+TOTAL EQUIL LC/MS(Performed 01/29/2023) Performed for Class 2 severe obesity due to excess calories with serious comorbidity in adult, unspecified BMI (HCC), Erectile dysfunction, unspecified erectile dysfunction type * COMPREHENSIVE METABOLIC PANEL(Performed 01/29/2023) Performed for Type 2 diabetes mellitus without complication, with long-term current use of insulin ([facility]) * HEMOGLOBIN A1C - POINT OF CARE (AMB) [facility](Performed 01/23/2023) Performed for Type 2 diabetes mellitus without complication, with long-term current use of insulin (HCC) * HEMOGLOBIN A1C - POINT OF CARE (AMB) [facility](Performed 10/24/2022) Performed for Type 2 diabetes mellitus without complication, with long-term current use of insulin ([facility]) * AMBULATORY REFERRAL TO SLEEP SPECIALIST(Performed 10/24/2021) Performed for Sleep apnea, unspecified type * HEMOGLOBIN A1C - POINT OF CARE (AMB) [facility](Performed 09/27/2021) Performed for Uncontrolled type 2 diabetes mellitus with hyperglycemia ([facility]) Results * HEMOGLOBIN A1C - POINT OF CARE (AMB) [facility] (09/23/2024 1:32 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 SERVER) Only the most recent of4 resultswithin the time period is included. Hemoglobin A1c POCT 6.7 % [address] BLOOD SPECIMEN / Unknown 09/23/2024 1:32 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 SERVER Samanta Francisco MD LAB - POINT OF CARE ORDERABLES [address] [facility] LEVEL [place] [id number] [place] [address] * MICROALB/CREAT RATIO URINE RANDOM PANEL (04/15/2024 [...] - 04/16/2024 7:12 AM CDT Performed at: [address] [place] [id number] [employer]heat Furnace Operator: Paulie Luong PhD, Phone: [phone] Specimen Comment: A courtesy copy of this report has been sent to [phone], the patient Aron Rogers MD LAB - URINE CHEMISTR Y ORDERABLES [facility] INSURANCE BILL [address] [place] [address] * (ABNORMAL) HEMOGLOBIN A1C (04/15/2024 11:21 AM CDT) Hemoglobin A1c 6.6(H) 4.8 - 5.6 % [facility] INSURANCE BILL Comment: Prediabetes: 5.7 - 6.4 Diabetes: >6.4 Glycemic control for adults with diabetes: <7.0 04/15/2024 11:2 1 AM CDT 04/15/2024 Narrative [facility] INSURANCE BILL - 04/16/2024 7:12 AM CDT [facility]formed at: [facility] [address], [place] [id number] Reheat Furnace Operator: Paulie Luong PhD, Phone: [phone] Specimen Comment: A courtesy copy of this report has been sent to [phone], the patient Aron Rogers MD LAB - CHEMISTRY MEG GARCIAS [facility] INSURANCE BILL [address] [place] [address] * LAB RESULTS ORDER (04/15/2024) Only the most recent of2 resultswithin the time period is included. 04/15/2024 Narrative 04/15/2024 Ordered by an unspecified provider. Scanned Document LAB - THERAPEUTIC DR LIN MONITORING ORDERABLES * TESTOSTERONE FREE+TOTAL EQUIL LC/MS (04/09/2023 8:01 AM CDT) Only the most recent of2 resultswithin the time period is included. Testosterone Total LC-MS 419.7 264.0 - 916.0 ng/dL [facility] INSURANCE BILL Comment: This [facility] LC/MS-MS method is currently certified by the CDC Hormone Standardization Program (HoSt). Adult male reference interval is based on a population of healthy nonobese males (BMI <30) between 19 and 39 years old. Federico et.al. JCEM 2017,102;2955-4629. PMID: [id number]. Testosterone Free 8.44 5.00 - 21.00 ng/dL [facility] INSURANCE BILL Testosterone % Free 2.01 1.50 - 4.20 % [facility] INSURANCE BILL Comment:FASTING Blood BLOOD SPECIMEN / Unknown 04/09/2023 8:01 AM CDT 04/09/2023 Narrative [facility] INSURANCE BILL - 04/14/2023 7:07 AM CDT A courtesy copy of this report has been sent to [phone] Test(s) [id number], Total, LC/MS was developed and its performance characteristics determined by [facility]. It has not been cleared or approved by the Food and Drug Administration. Resulting Agency Comment Lab Testing performed at: [facility] [id number] Shar Park MD LAB - CHEMISTRY MEG GARCIAS Performing Organization Address City/[facility]/ZIP Co de Phone Number [facility] INSURANCE BILL [address] [place] [address] * PROLACTIN (04/09/2023 8:01 AM CDT) Prolactin 14.6 4.0 - 15.2 ng/mL [facility] Comment:FASTING 04/09/2023 8:01 AM CDT 04/09/2023 Narrative Resulting Agency Comment [facility] Testing performed at: [facility] [address] [facility] [phone] Shar Park MD LAB - CHEMISTRY MEG GARCIAS Performing Organization Address [facility] de Phone Number [facility] INSURANCE BILL [address] [place] [address] * (ABNORMAL) LH (04/09/2023 8:01 AM CDT) LH 13.7(H) 1.7 - 8.6 mIU/mL [facility] INSURANCE BILL Comment:FASTING 04/09/2023 8:01 AM CDT 04/09/2023 Narrative Resulting Agency Comment Lab Testing performed at: [facility] [address] [facility] [phone] Shar Park MD LAB - CHEMISTRY MEG GARCIAS Performing Organization Address [facility] Co de Phone Number [facility] [address] [place] [address] * (ABNORMAL) FSH (04/09/2023 8:01 AM CDT) FSH 19.4(H) 1.5 - 12.4 mIU/mL [facility] INSURANCE BILL Comment:FASTING 04/09/2023 8:01 AM CDT 04/09/2023 Narrative Resulting Agency Comment Lab Testing performed at: [facility] [address] [facility] [phone] Shar Park MD LAB - CHEMISTRY MEG GARCIAS Performing Organization Address City/[facility]/ZIP Co de Phone Number [facility] INSURANCE BILL [address] [place] [address] * TSH (04/09/2023 8:01 AM CDT) Pathologist [facility] TSH 2.480 0.450 - 4.500 uIU/mL [facility] INSURANCE BILL Comment:FASTING 04/09/2023 8:01 AM CDT 04/09/2023 Narrative Resulting Agency Comment Lab Testing performed at: [facility] [address] [facility] [phone] Shar Park MD LAB - CHEMISTRY MEG GARCIAS Performing Organization Address [facility] Co de Phone Number [facility] INSURANCE BILL [address] [place] [address] * T4 FREE (04/09/2023 8:01 AM CDT) Pathologist [facility] T4 Free 1.25 0.82 - 1.77 ng/dL [facility] INSURANCE BILL Comment:FASTING 04/09/2023 8:01 AM CDT 04/09/2023 Narrative Resulting Agency Comment Lab Testing performed at: [facility] [address] [facility] [phone] Shar Park MD LAB - CHEMISTRY MEG GARCIAS Performing Organization Address City/[facility]/ZIP Co de Phone Number [facility] INSURANCE BILL [address] [place] [address] * (ABNORMAL) VITAMIN D 25-HYDROXY (01/29/2023 7:39 AM CDT) Vitamin D, 25 Hydroxy 17.2(L) 30.0 - 100.0 ng/mL [facility] INSURANCE BILL Comment: Vitamin D deficiency has been defined by the Doss of Medicine and an Endocrine Society practice guideline as a level of serum 25-OH vitamin D less than 20 ng/mL (1,2). The Endocrine Society went on to further define vitamin D insufficiency as a level between 21 and 29 ng/mL (2). 1. IOM (Doss of Medicine). 2010. Dietary reference intakes for calcium and D. [place]: The National Academies Press. 2. Neal MF, Jim BARON, Conner POWERS, et al. Evaluation, treatment, and prevention of vitamin D deficiency: an Endocrine Society clinical practice guideline. JCEM. 2010; 96(7):1911-30. FASTING 01/29/2023 7:39 AM CDT 01/29/2023 Narrative Resulting Agency Comment Lab Testing performed at: [facility] [address] [facility] [phone] Shar Park MD LAB - CHEMISTRY MEG GARCIAS [facility] INSURANCE BILL [address] [place] [address] * CBC WITH DIFFERENTIAL (01/29/2023 7:39 AM CDT) Pathologist [facility] WBC 6.7 3.4 - 10.8 x10E3/uL [facility] INSURANCE BILL RBC 4.52 4.14 - 5.80 x10E6/uL [facility] INSURANCE BILL Hemoglobin 14.1 13.0 - 17.7 g/dL [facility] INSURANCE BILL Hematocrit 42.4 37.5 - 51.0 % [facility] INSURANCE BILL MCV 94 79 - 97 fL [facility] INSURANCE BILL MCH 31.2 26.6 - 33.0 pg [facility] INSURANCE BILL MCHC 33.3 31.5 - 35.7 g/dL [facility] INSURANCE BILL RDW 12.4 11.6 - 15.4 % [facility] INSURANCE BILL Platelet Count 216 150 - 450 x10E3/uL [facility] INSURANCE BILL Granulocytes % 63 Not Estab. % [facility] INSURANCE BILL Lymphocytes % 21 Not Estab. % [facility] INSURANCE BILL Monocytes % 9 Not Estab. % [facility] INSURANCE BILL Eosinophils % 5 Not Estab. % [facility] INSURANCE BILL Basophils % 1 Not Estab. % [facility] INSURANCE BILL Immature Cells NOT AVAILABLE [facility] INSURANCE BILL Comment:Result cannot be obt ained for this observation. Granulocytes Absolute 4.2 1.4 - 7.0 x10E3/uL [facility] INSURANCE BILL Lymphocytes Absolute 1.4 0.7 - 3.1 x10E3/uL [facility] INSURANCE BILL Monocytes Absolute 0.6 0.1 - 0.9 x10E3/uL [facility] INSURANCE BILL Eosinophils Absolute 0.3 0.0 - 0.4 x10E3/uL [facility] INSURANCE BILL Basophils Absolute 0.1 0.0 - 0.2 x10E3/uL [facility] INSURANCE BILL Immature Granulocytes 1 Not Estab. % [facility] INSURANCE BILL Immature Granulocytes Absolute 0.1 0.0 - 0.1 x10E3/uL [facility] INSURANCE BILL nRBC NOT AVAILABLE [facility] INSURANCE BILL Comment:Result cannot be obt ained for this observation. Comment Hematology NOT AVAILABLE [facility] INSURANCE BILL Comment: A hand-written panel/profile was received from your office. In accordance with the [facility] Ambiguous Test Code Policy dated January 2003, we have assigned CBC with Differential/Platelet, Test Code #[id number] to this request. If this is not the testing you wished to receive on this specimen, please contact the [facility] Client Inquiry/ Technical Services Department to clarify the test order. We appreciate your business. FASTING Result cannot be obtained for this observation. 01/29/2023 7:39 AM CDT 01/29/2023 Narrative Resulting Agency Comment [facility]: [facility] [address] [facility] [phone] Shar Park MD LAB - HEMATOLOGY ORD ERABLES [facility] INSURANCE BILL [address] [place] [address] * PROSTATE SPECIFIC ANTIGEN SCREEN (01/29/2023 7:39 AM CDT) PSA 1.8 0.0 - 4.0 ng/mL [facility] INSURANCE BILL Comment: Lucy ECLIA methodology. . According to the [place] [employer], Serum PSA should decrease and remain at undetectable levels after radical prostatectomy. The AUA defines biochemical recurrence as an initial PSA value 0.2 ng/mL or greater followed by a subsequent confirmatory PSA value 0.2 ng/mL or greater. Values obtained with different assay methods or kits cannot be used interchangeably. Results cannot be interpreted as absolute evidence of the presence or absence of malignant disease. FASTING 01/29/2023 7:39 AM CDT 01/29/2023 Narrative Resulting Agency Comment Lab Testing performed at: [address] [id number] Shar Park MD LAB - CHEMISTRY MEG GARCIAS Performing Organization Address [facility] Co de Phone Number [facility] INSURANCE BILL [address] [place] [address] * VITAMIN B12 (01/29/2023 7:39 AM CDT) Vitamin B12 598 232 - 1,245 pg/mL [facility] INSURANCE BILL Comment:FASTING 01/29/2023 7:39 AM CDT 01/29/2023 Narrative Resulting Agency Comment Lab Testing performed at: [address] [phone] Shar Park MD LAB - CHEMISTRY MEG GARCIAS Performing Organization Address City/[facility]/ZIP Co de Phone Number [facility] INSURANCE BILL [address] [place] [address] * (ABNORMAL) LIPID PROFILE (01/29/2023 7:39 AM CDT) Cholesterol 170 100 - 199 mg/dL [facility] INSURANCE BILL Triglycerides 179(H) 0 - 149 mg/dL [facility] INSURANCE BILL HDL Cholesterol 39(L) >39 mg/dL [facility] INSURANCE BILL VLDL Calculated 31 5 - 40 mg/dL [facility] INSURANCE BILL LDL Calculated 100(H) 0 - 99 mg/dL [facility] INSURANCE BILL Comment NOT AVAILABLE [facility] INSURANCE BILL Comment: FASTING Result cannot be obtained for this observation. 01/29/2023 7:39 AM CDT 01/29/2023 Narrative Resulting Agency Comment Lab Testing performed at: [facility] [address] [facility] [phone] Shar Park MD LAB - CHEMISTRY MEG GARCIAS [facility] INSURANCE BILL [address] [place] [address] * (ABNORMAL) COMPREHENSIVE METABOLIC PANEL (01/29/2023 7:38 [...] Agency Comment Lab Testing performed at: [facility] [address] [facility] [id number] Shar Park MD LAB - CHEMISTRY MEG GARCIAS [facility] INSURANCE BILL [address] [place] [address] * Ref to Sleep Specialist - Bud (10/24/2021 11:48 AM CDT) Floyd Lind MD OUTPATIENT REFERRALS Care Teams Professor/Nurse Anesthetist Relationship Specialty Start Date End Date Joe Sanchez MD [address] [facility] [address] [place] [address] PCP - General 02/02/22
--- OUTSIDE RECORDS SUMMARY | 2024-10-03 09:35 | XMS_ITS | Clinical Summary ---
Author Organization [facility] Address [address] [place] [id number] Care Team Providers Care Optical Manufacturing Technician Name Role Phone Joe Sanchez MD Unavailable Joe Sanchez MD Primary Care Provider [phone] Allergies Active Allergy Reactions Criticality Noted Date Comments Codeine Itching Low 10/10/2016 Medications ACCU-CHEK TERRI PLUS TEST STRP strip USE TO TEST TWICE A DAY 11/25/19 19 Active ACCU-CHEK TERRI PLUS METER misc as directed 0 11/25/19 19 Active metoprolol XL (TOPROL-XL) 25 mg 24 hr tablet Take 1 tablet (25 mg total) by mouth daily Active aspirin 81 mg enteric coated tablet Take 1 tablet (81 mg total) by mouth daily Active fenofibrate nanocrystallized (TRICOR,TRIGLIDE) 145 mg tablet Take 1 tablet (145 mg total) by mouth daily Active atorvastatin (LIPITOR) 80 mg tablet Take 1 tablet (80 mg total) by mouth daily Active dapagliflozin propanediol (FARXIGA) 5 mg tablet Take 1 tablet (5 mg total) by mouth sinter machine operator before breakfast 01/24/20 23 Active UltiCare Pen Needle 32 gauge x 5/32 needle 08/02/19 24 Active losartan (COZAAR) 50 mg tablet Take 1 tablet (50 mg total) by mouth daily 03/02/20 24 Active metFORMIN (GLUCOPHAGE) 500 mg tablet Take 1 tablet (500 mg total) by mouth 2 (two) times a day with meals 03/03/20 24 Active omeprazole (PriLOSEC) 20 mg capsule 03/31/20 24 Active LANTUS 100 unit/mL (3 mL) pen for injection 03/31/20 24 Active ezetimibe (ZETIA) 10 mg tablet Take 1 tablet (10 mg total) by mouth daily 90 tablet 2 04/03/20 24 025 Active Additional Information Patient not taking.Reported on 10/02/2024 sildenafiL (VIAGRA) 100 mg tablet Take 1 tablet (100 mg total) by mouth as needed for erectile dysfunction 25 tablet 07/08/20 24 Active ergocalciferol (VITAMIN D) 50,000 unit capsule Take 1 capsule (50,000 Units total) by mouth once a week 07/08/20 24 Active OneTouch Delica Plus Lancet 33 gauge misc USE THREE TIMES DAILY BEFORE MEALS 10/01/19 25 Active Mounjaro 10 mg/0.5 mL pen injector injection Inject 0.5 mL (10 mg total) under the skin once a week 09/24/19 25 Active Ozempic 2 mg/dose (8 mg/3 mL) pen injector injection 03/31/20 24 025 Discontin ued(Alter regla therapy) Active Problems Problem Noted Date Diagnosed Date Abnormal EKG 12/11/2018 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 Stable denies angina in clinic today. Continue ASA, Lipitor 80 mg daily and zetia 10 mg daily, tricor 145 mg daily, Farxiga 5 mg daily, metoprolol 25 mg xl daily and follow up with Nurys in 6 months. FLP when able. Assessment & Plan (04/03/2024 10:06 AM CDT): Chronically occluded RCA and non obstructing disease in the LAD/LCx in 2016. Stable denies angina in clinic today. Continue ASA, Lipitor 80 mg daily and add zetia 10 mg daily, tricor 145 mg daily, Farxiga 5 mg daily, metoprolol 25 mg xl daily and follow up with Nurys in 6 months. Type 2 diabetes mellitus, wi thout long-term current use of insulin 12/11/2018 Other hyperlipidemia 12/11/2018 Assessment & Plan (10/02/2024 10:28 AM CDT): FLP when able, lipitor 80 mg daily. And zeita 10 mg daily. Assessment & Plan (04/03/2024 10:01 AM CDT): LDL not at goal on lipitor 80 mg daily. Add zeita 10 mg daily, repeat FLP in 3 months. Other male erectile dysfunction 12/11/2018 Encounters Date Type Department Care Team Description 10/02/2024 10:00 AM CDT Office Visit [facility] Cardiology [address] [facility] [address] [place] [address] Nurys Reynolds NP Other hyperlipidemia (Primary Dx); Coronary artery disease of [place] artery of [place] heart with stable angina pectoris from Last 3 Months Medical History Medical History Date Comments Hypertension Diabetes (HCC) Family History Medical History Relation Name Comments Diabetes Father Heart disease Mother Relation Name Status Comments Father Mother Social History Tobacco Use Types Packs/Day Years Used Date Smoking Tobacco: Former Passive Smoke Exposure: Never Smokeless Tobacco: Former Tobacco Cessation:Counseling Given: Not Answered Sex and Gender Information Value Date Recorded Sex Assigned at Not on file Legal Sex Male 11:29 AM CDT Gender Identity Not on file Sexual Orientation Not on file Obstetrics History Last Filed Vital Signs Vital Sign Reading Time Taken Comments Blood Pressure 122/78 10/02/2024 9:56 AM CDT Pulse 79 10/02/2024 9:56 AM CDT Temperature 36.9 C (98.5 F) 10/02/2024 9:56 AM CDT Respiratory Rate - - Oxygen Saturation 96% 10/02/2024 9:56 AM CDT Inhaled Oxygen Concentration - - Weight 118.4 kg (261 lb) 10/02/2024 9:56 AM CDT Height 190.5 cm (6' 3 ) 10/02/2024 9:56 AM CDT Body Mass Index 32.62 10/02/2024 9:56 AM CDT Plan of Treatment Health Maintenance Due Date Last Done Comments Albumin Creatinine Ratio, Urine 1955 Colon Cancer Screening-Colonoscopy 1955 Depression Screening 1955 Fall Risk Assessment 1955 Hepatitis C Screening 1955 Prostate Cancer Screening-PSA 1955 Dilated Eye Exam 1955 Foot Exam 1955 DTaP/Tdap/Td Vaccine (1 - Tdap) 12/29/1966 Hepatitis B Screening 12/29/1973 Zoster Vaccine (1 of 2) 12/29/2005 Abdominal Aortic Aneurysm (A AA) Screen 12/29/2020 Well Visit 65+ 12/29/2020 Pneumococcal vaccine 65+ (2 of 2 - PCV) 08/31/2022 08/31/2021 Influenza Vaccine (#1) 2024 08/31/2021, 2018 Lipid Panel 09/04/2024 09/04/2023, 0707/2022, 12/11/2018, Additional history exists eGFR 09/04/2024 09/04/2023 Hemoglobin A1C 10/13/2024 04/15/2024 Procedures Procedure Name Priority Date/Time Associated Diagnosis Comments EGFR Routine 09/04/2023 10:32 AM CLINICAL PSYCHOLOGIST LICENSED Other hyperlipidemia Coronary artery disease of [place] artery of [place] heart with stable angina pectoris LIPID PANEL Routine 09/04/2023 10:32 AM CLINICAL PSYCHOLOGIST LICENSED Other hyperlipidemia Coronary artery disease of [place] artery of [place] heart with stable angina pectoris from Last 3 Months or Most Recently Relevant to Health Maintenance Results * eGFR (09/04/2023 10:32 AM CLINICAL PSYCHOLOGIST LICENSED) eGFR 66 >=60 mL/min/1. 73 m2 [facility] Comment: Interpretive Data Reference Interval Normal >/= 90 mL/min/1.73m2 Mildly decreased* 60 - 89 mL/min/1.73m2 Mildly to moderately decreased 45 - 59 mL/min/1.73m2 Moderately to severely decreased 30 - 44 mL/min/1.73m2 Severely decreased 15 - 29 mL/min/1.73m2 Kidney Failure < 15 mL/min/1.73m2 *Relative to young adult level Estimated glomerular filtration rate is determined by the 2020 CKD-EPI equation recommended by the National Kidney Foundation (A Unifying Approach to GFR Estimation: Recommendations of the NKF-ASK Task Force on Reassessing the Inclusion of Race in Diagnosing Kidney Disease, JASN 2020). The CKD-EPI equation should not be used for patients with unstable renal function and has not been validated in children and those over 70. Current interpretive data was last reviewed 2021. Blood 09/04/2023 10:3 2 AM CLINICAL PSYCHOLOGIST LICENSED 09/04/2023 1:39 PM CLINICAL PSYCHOLOGIST LICENSED us Pa Wood MD LAB BLOOD ORDERABLES Final Result [facility] [address] [facility] [place] [address] * (ABNORMAL) Lipid panel (09/04/2023 10:32 AM CLINICAL PSYCHOLOGIST LICENSED) Cholesterol 148 30 - 199 mg/dL [facility] Comment: Interpretive Data Ages < or = 19 years Acceptable: <170 mg/dL Borderline high: 170-199 mg/dL High: >or= 200 mg/dL Ages > or = 20 years Desirable: <200 mg/dL Borderline high: 200-239 mg/dL High: >or= 240 mg/dL Literature References: 1. Expert Panel on Integrated Guidelines for Cardiovascular Health and Risk Reduction in Children and Adolescents. Pediatrics 2011;128:S213 2. NCEP Expert Panel. Circulation 2004;110:227 Current Interpretive Data was last revised on 2018. Triglycerides 72 <=149 mg/dL [facility] Comment: Interpretive Data Ages < or = 9 years Acceptable: <75 mg/dL Borderline high: 75-99 mg/dL High: >or= 100 mg/dL Ages 10 to 20 years Acceptable: <90 mg/dL Borderline high: 90-129 mg/dL High: >or= 130 mg/dL Ages > or = 20 years Desirable: <150 mg/dL Borderline high: 150-199 mg/dL High: 200-499 mg/dL Very high: >or= 499 mg/dL Literature References: 1. Expert Panel on Integrated Guidelines for Cardiovascular Health and Risk Reduction in Children and Adolescents. Pediatrics 2011;128:S213 2. NCEP Expert Panel. Circulation 2004;110:227 Current Interpretive Data was last revised on 2018. HDL 39(L) >=40 mg/dL [facility] Comment: Interpretive Data Ages < or = 19 years Acceptable: >45 mg/dL Borderline low: 40-45 mg/dL Low: <40 mg/dL Ages > or = 20 years Desirable: >or= 60 mg/dL Low: <40 mg/dL Literature References: 1. Expert Panel on Integrated Guidelines for Cardiovascular Health and Risk Reduction in Children and Adolescents. Pediatrics 2011;128:S213 2. NCEP Expert Panel. Circulation 2004;110:227 Current Interpretive Data was last revised on 2018. LDL, calculated 95 <=129 mg/dL [facility] Comment: Interpretive Data Ages < or = 19 years Acceptable: <110 mg/dL Borderline high: 110-129 mg/dL High: >or= 130 mg/dL Ages > or = 20 years Optimal: <100 mg/dL Near optimal: 100-129 mg/dL Borderline high: 130-159 mg/dL High: >160 mg/dL Literature References: 1. Expert Panel on Integrated Guidelines for Cardiovascular Health and Risk Reduction in Children and Adolescents. Pediatrics 2011;128:S213 2. NCEP Expert Panel. Circulation 2004;110:227 Current Interpretive Data was last revised on 2018. Non-HDL Cholesterol 109 mg/dL [facility] Comment: Interpretive Data Ages < or = 19 years Acceptable: <120 mg/dL Borderline high: 120-144 mg/dL High: >145 mg/dL Ages > or = 20 years When triglycerides are >200 mg/dL, Non-HDL cholesterol is a secondary target of therapy with treatment goals that are 30 mg/dL greater than the LDL cholesterol target. Literature References: 1. Expert Panel on Integrated Guidelines for Cardiovascular Health and Risk Reduction in Children and Adolescents. Pediatrics 2011;128:S213 2. NCEP Expert Panel. Circulation 2004;110:227 Current Interpretive Data was last revised on 2018. Chol/HDL ratio 4 [facility] Blood 09/04/2023 10:3 2 AM CLINICAL PSYCHOLOGIST LICENSED 09/04/2023 1:35 PM CLINICAL PSYCHOLOGIST LICENSED us Pa Wood MD LAB BLOOD ORDERABLES Final Result [facility] [address] [facility] [place] [address] from Last 3 Months or Most Recently Relevant to Health Maintenance Insurance MEDICARE SOLUTIONS IDPA Care Teams Optical Manufacturing Technician Relationship Specialty Start Date End Date Joe Sanchez MD PCP - General Emergency Medicine 02/20/23 Joe Sanchez MD Emergency Medicine 05/18/20
--- OUTSIDE RECORDS SUMMARY | 2024-10-03 09:35 | XMS_ITS | Referral Summary ---
Author Organization [facility] Address [address] [place] [address] Care Team Providers Care Laboratory Miller Name Role Phone Joe Sanchez MD Unavailable Joe Sanchez MD Primary Care Provider [phone] Encounters Date Type Department Care Team Description 10/02/2024 10:00 AM CDT Office Visit [facility] Cardiology [address] [facility] [address] [place] [address] Nurys Reynolds NP Other hyperlipidemia (Primary Dx); Coronary artery disease of [place] artery of [place] heart with stable angina pectoris from Last 3 Months Allergies Active Allergy Reactions Criticality Noted Date Comments Codeine Itching Low 10/10/2016 Medications ACCU-CHEK TERRI PLUS TEST STRP strip USE TO TEST TWICE A DAY 10 11/25/19 19 Active ACCU-CHEK TERRI PLUS METER [...] 1 tablet (5 mg total) by mouth documentation specialist before breakfast 01/24/20 23 Active UltiCare Pen Needle 32 gauge x needle 08/02/19 24 Active losartan (COZAAR) 50 [...] 3 months. Other male erectile dysfunction 12/11/2018 Social History Tobacco Use Types Packs/Day Years [...] 10/02/2024 9:56 AM CDT Plan of Treatment Not on file Procedures Procedure Name Priority Date/Time Associated Diagnosis Comments EGFR Routine 09/04/2023 10:32 AM BRUSH WORKER Other hyperlipidemia Coronary artery disease of [place] artery of [place] heart with stable angina pectoris LIPID PANEL Routine 09/04/2023 10:32 AM BRUSH WORKER Other hyperlipidemia Coronary artery disease of [place] artery of [place] heart with stable angina pectoris from Last 3 Months or Most Recently Relevant to Health Maintenance Results * eGFR (09/04/2023 10:32 AM BRUSH WORKER) eGFR 66 >=60 mL/min/1. 73 m2 [facility] Comment: Interpretive Data Reference Interval Normal >/= [...] reviewed 2021. Blood 09/04/2023 10:3 2 AM BRUSH WORKER 09/04/2023 1:39 PM BRUSH WORKER us Pa Wood MD LAB BLOOD ORDERABLES Final Result [facility] [address] [facility] [place] [address] * (ABNORMAL) Lipid panel (09/04/2023 10:32 AM BRUSH WORKER) Cholesterol 148 30 - 199 mg/dL [facility] Comment: Interpretive Data Ages < or = [...] revised on 2018. Triglycerides 72 <=149 mg/dL [facility] Comment: Interpretive Data Ages < or = [...] on 2018. HDL 39(L) >=40 mg/dL [facility] Comment: Interpretive Data Ages < or = 19 years Acceptable: >45 mg/dL Borderline low: 40-45 mg/dL Low: <40 mg/dL Ages > or = 20 years Desirable: >or= 60 mg/dL Low: <40 mg/dL Literature References: 1. Expert Panel on Integrated Guidelines for Cardiovascular Health and Risk Reduction in Children and Adolescents. Pediatrics 2011;128:S213 2. NCEP Expert Panel. Circulation 2003;110:227 Current Interpretive Data was last revised on 2018. LDL, calculated 95 <=129 mg/dL [facility] Comment: Interpretive Data Ages < or = [...] Pediatrics 2011;128:S213 2. NCEP Expert Panel. Circulation 2003;110:227 Current Interpretive Data was last revised on 2018. Non-HDL Cholesterol 109 mg/dL [facility] Comment: Interpretive Data Ages < or = [...] last revised on 2018. Chol/HDL ratio 4 [facility] Blood 09/04/2023 10:3 2 AM BRUSH WORKER 09/04/2023 1:35 PM BRUSH WORKER us Pa Wood MD LAB BLOOD ORDERABLES Final Result [facility] Department [place] [address] from Last 3 Months or Most Recently Relevant to Health Maintenance Insurance MEDICARE SOLUTIONS [facility] MEDICARE Address: [facility] [address] [place] [address] MEDICARE SOLUT[employer] IDPA Care Teams Laboratory Miller Relationship Specialty Start Date End Date Joe Sanchez MD PCP - General Emergency Medicine 02/20/23 Joe Sanchez MD Emergency Medicine 05/18/20
--- OUTSIDE RECORDS SUMMARY | 2024-10-03 09:35 | XMS_ITS | Encounter Summary ---
Author Organization [facility] Address [address] [place] [address] Phone Care Team Providers Care Construction Sales Representative Name Role Phone Joe Sanchez MD Unavailable Joe Sanchez MD Primary Care Provider [phone] Encounter Details Date Type Department Care Team (Late st Contact Info) Description 10/02/2024 10:00 AM CDT Office Visit [facility]iology [address] [address] [address] [place] [address] Nurys Reynolds, PHANI [address] [facility] [address] [place], [place] [id number] Other hyperlipidemia (Primary Dx); Coronary artery disease of [place] artery of [place] heart with stable angina pectoris Social History Tobacco Use Types Packs/Day Years Used Date Smoking Tobacco: Former Passive Smoke Exposure: Never Smokeless Tobacco: Former Tobacco Cessation:Counseling Given: Not Answered Sex and Gender Information Value Date Recorded Sex Assigned at Not on file Legal Sex Male 11:29 AM CDT Gender Identity Not on file Sexual Orientation Not on file documented as of this encounter Last Filed Vital Signs Vital Sign Reading [...] Mass Index 32.62 10/02/2024 9:56 AM CDT documented in this encounter Patient Instructions * Patient Instructions* Nurys Reynolds NP - 10/02/2024 10:00 AM CDT Routine follow up 6 months. documented in this encounter Progress Notes * Nurys Reynolds NP - 10/02/2024 10:00 AM CDT Patient Name: Heraclio Herrera : : 1955 Date of Service: 10/02/2024 Referring: Laura CHIEF COMPLAINT Routine Follow up PRINCIPAL AND SECONDARY DIAGNOSIS: CAD, chronic occluded RCA in 2018, 50% LAD DMII HLD GRISEL HISTORY OF PRESENT ILLNESS: 68 y.o. male with a past medical history significant for CAD who was last seen in clinic by me in March 2024 and was overall doing well. His on [facility] now, he changed from ozempic. Since we have seen him, he continues to feel well. He is getting a sleep study in December. He is active and walking on the treadmill, walking in the pool and feels well when he does. Today he reports no orthopnea, paroxysmal nocturnal dyspnea, peripheral edema, chest pain, syncope,near syncope, and palpitations. REVIEW OF SYSTEMS: Negative except for state in the HPI MEDICATIONS: Outpatient Encounter Medications as of 10/02/2024 Medication Sig Dispense Refill ACCU-CHEK TERRI PLUS METER misc as directed 0 ACCU-CHEK TERRI PLUS TEST STRP strip USE TO TEST TWICE A DAY 10 aspirin 81 mg enteric coated tablet Take 1 tablet (81 mg total) by mouth daily atorvastatin (LIPITOR) 80 mg tablet Take 1 tablet (80 mg total) by mouth daily dapagliflozin propanediol (FARXIGA) 5 mg tablet Take 1 tablet (5 mg total) by mouth seafood packer before breakfast ergocalciferol (VITAMIN D) 50,000 unit capsule Take 1 capsule (50,000 Units total) by mouth once a week fenofibrate nanocrystallized (TRICOR,TRIGLIDE) 145 mg tablet Take 1 tablet (145 mg total) by mouth daily LANTUS 100 unit/mL (3 mL) pen for injection losartan (COZAAR) 50 mg tablet Take 1 tablet (50 mg total) by mouth daily metFORMIN (GLUCOPHAGE) 500 mg tablet Take 1 tablet (500 mg total) by mouth 2 (two) times a day withmeals metoprolol XL (TOPROL-XL) 25 mg 24 hr tablet Take 1 tablet (25 mg total) by mouth daily Mounjaro 10 mg/0.5 mL pen injector injection Inject 0.5 mL (10 mg total) under the skin once a week omeprazole (PriLOSEC) 20 mg capsule OneTouch Delica Plus Lancet 33 gauge misc USE THREE TIMES DAILY BEFORE MEALS sildenafiL (VIAGRA) 100 mg tablet Take 1 tablet (100 mg total) by mouth as needed for erectile dysfunction 25 tablet 0 UltiCare Pen Needle 32 gauge x 5/32 needle ezetimibe (ZETIA) 10 mg tablet Take 1 tablet (10 mg total) by mouth daily (Patient not taking: Reported on 10/02/2024) 90 tablet 2 [DISCONTINUED] Ozempic 2 mg/dose (8 mg/3 mL) pen injector injection No facility-administered encounter medications on file as of 10/02/2024. PHYSICAL EXAM: BP 122/78 Pulse 79 Temp 36.9 ??C (98.5 ??F) Ht 190.5 cm (6' 3 ) Wt 118.4 kg (261 lb) BaS902% BMI 32.62 kg/m?? General: Well appearing, No pain or distress, well nourished HEENT: Within normal limits Neck: Supple, No carotid bruits, no JVD Respiratory: Clear to auscultation bilaterally; no wheezing/rales/rhonchi; respirations unlabored Cardiovascular: RRR, normal S1 and S2. No S3 or S4. No murmurs or rubs Gastrointestinal: soft, non-tender abdomen, no masses palpable Extremities: Warm and dry without edema Psychiatric: normal affect Neurologic: awake/alert, no focal deficits DIAGNOSTIC TESTING: Lab Results Component Value Date GLUCOSE 105 09/04/2023 CALCIUM 9.5 09/04/2023 SODIUM 142 09/04/2023 POTASSIUM 4.8 09/04/2023 CO2 31 09/04/2023 CHLORIDE 106 09/04/2023 BUNSER 22 09/04/2023 CREATININE 1.20 09/04/2023 Chemistry Lab Results Component Value Date SODIUM 142 09/04/2023 POTASSIUM 4.8 09/04/2023 CHLORIDE 106 09/04/2023 CO2 31 09/04/2023 ANIONGAP 5 09/04/2023 BUNSER 22 09/04/2023 CREATININE 1.20 09/04/2023 GLUCOSE 105 09/04/2023 CALCIUM 9.5 09/04/2023 BILITOT 0.4 09/04/2023 ALBUMIN 4.5 09/04/2023 GFRNAA 66 09/04/2023 ALKPHOS 56 09/04/2023 AST 26 09/04/2023 ALT 26 09/04/2023 Lab Results Component Value Date CHOL 148 09/04/2023 CHOL 151 12/11/2018 Lab Results Component Value Date HDL 39 (L) 09/04/2023 HDL 29 (L) 12/11/2018 Lab Results Component Value Date LDLCALC 95 09/04/2023 LDLCALC 90 12/11/2018 Lab Results Component Value Date TRIG 72 09/04/2023 TRIG 162 (H) 12/11/2018 No results found for: POCCHDLR No results found for: POCNONHDL No results found for: POCCHLPL Lab Results Component Value Date WBC 6.0 09/04/2023 HGB 14.2 09/04/2023 HCT 43.9 09/04/2023 MCV 92.6 09/04/2023 LABPLAT 223 09/04/2023 No results found for: HGBA1C ECHO: 01/2019 DOPPLER/COLOR FOLOW DOPPLER COMMENTS: No AR seen, No MR seen, no , no MS, normal TV, normal PV. Diastolic function: Normal CONTRAST: 1.5 ml Optison Administered, (1.5 ml wasted). SUMMARY: LA is normal. Normal RV cavity size and function. LV cavity size is normal. Mild concentric LV hypertrophy and normal LVF; EF=68%. Normal Inferior vena cava. Normal aorta. No previous study MOST RECENT ISCHEMIC EVALUATION:2016 see media Single vessel CAD. RCA no PCI-chronically occluded. 50% OM, Non obstructing disease in LAD ASSESSMENT & PLAN: Problem List Items Addressed This Visit Cardiac and Vasculature Coronary artery disease of [place] artery with stable angina pectoris Chronically occluded RCA and non obstructing disease in the LAD/LCx in 2016. Stable denies angina in clinic today. Continue ASA, Lipitor 80 mg daily and zetia 10 mg daily, tricor 145 mg daily, Farxiga 5 mg daily, metoprolol 25 mg xl daily and follow up with Nurys in 6 months. FLP when able. Other hyperlipidemia - Primary FLP when able, lipitor 80 mg daily. And zeita 10 mg daily. Relevant Orders Lipid panel Nurys Reynolds NP documented in this encounter Miscellaneous Notes * Assessment & Plan Note - Nurys Reynolds NP - 10/02/2024 10:28 AM CDT Associated Problem(s): Other hyperlipidemia FLP when able, lipitor 80 mg daily. And zeita 10 mg daily. * Assessment & Plan Note - Nurys Reynolds NP - 10/02/2024 10:28 AM CDT Associated Problem(s): Coronary artery disease of [place] artery with stable angina pectoris Chronically occluded RCA and non obstructing disease in the LAD/LCx in 2016. Stable denies angina in clinic today. Continue ASA, Lipitor 80 mg daily and zetia 10 mg daily, tricor 145 mg daily, Farxiga 5 mg daily, metoprolol 25 mg xl daily and follow up with Nurys in 6 months. FLP when able. documented in this encounter Plan of Treatment Scheduled Orders Name Type Priority Associated Diagnoses Orde r Schedule Lipid panel Lab Routine Other hyperlipidemia Expected: 10/05/2024, Expires: 10/02/2025 documented as of this encounter Visit Diagnoses Diagnosis Other hyperlipidemia- Primary Coronary artery disease of [place] artery of [place] heart with stable angina pectoris documented in this encounter Discontinued Medications Medication Sig Discontinue Reason Start Date End Da te Ozempic 2 mg/dose (8 mg/3 mL) pen injector injection Alternate therapy 03/31/2024 10/02/2024 documented as of this encounter Historical Medications * This list may reflect changes made after this encounter. Mounjaro 10 mg/0.5 mL pen injector injection Inject 0.5 mL (10 mg total) under the skin once a week 09/23/2024 OneTouch Delica Plus Lancet 33 gauge misc USE THREE TIMES DAILY BEFORE MEALS 09/30/2024 ergocalciferol (VITAMIN D) 50,000 unit capsule Take 1 capsule (50,000 Units total) by mouth once a week 07/08/2024 added in this encounter Care Teams Construction Sales Representative Relationship Specialty Start Date End Date Joe Sanchez MD PCP - General Emergency Medicine 02/20/23 Joe Sanchez MD Emergency Medicine 05/18/20 documented as of this encounter
== END 2024-10-03 09:26 | disposition home or self-care (01) ==
LOC: ANHIMG 09:33
PROVIDERS: PCP Emergency Medicine; Visit Provider Emergency Medicine
DX: M25.562 Pain in left knee (principal); M25.561 Pain in right knee
CPT/HCPCS: 73564